=== PATIENT | male | born 1980 | race Caucasian/White ===

== ENCOUNTER 2017-09-14 15:29 | Emergency (ER) | payer SELFPAY ==
[~2017-09-14] VITALS: Ht 182.9 cm; Wt 105.0 kg
[2017-09-14 15:32] VITALS: BP 135/75
[2017-09-14] MEDS ORDERED: PLEASE ENTER ALLERGIES MC SCH (16:00)
[2017-09-14] MEDS ORDERED: PLEASE ENTER HEIGHT AND WEIGHT MC SCH (16:00)
[2017-09-14] MEDS ORDERED: LORazepam 1MG TABLET PO ONE (16:00)
== END 2017-09-14 16:19 | disposition left against medical advice (07) ==
LOC: ED 16:00
DX: F20.0 Paranoid schizophrenia (principal)
CPT/HCPCS: 99284